=== PATIENT | male | born 1960 | race African-American/Black ===

== ENCOUNTER 2021-09-17 10:30 | Emergency (ER) | payer MEDICAID, OTHER ==
[~2021-09-17] VITALS: Ht 177.8 cm; Wt 81.6 kg
[2021-09-17] MEDS ORDERED: VANCOMYCIN INJECTION 1,750 MG in NS IV 500 ML 500 ML IV ONE (10:45)
[2021-09-17] MEDS ORDERED: CEFEPIME INJECTION 1,000 MG in NS (IVPB) 50 ML IV ONE (10:45)
[2021-09-17] MEDS ORDERED: NS IV 1000 ML 1,000 ML IV SCH ×3 (10:45→12:30)
[2021-09-17] MEDS ORDERED: NS IV 1000 ML 2,000 ML ONE (10:48)
--- NOTE | 2021-09-17 10:50 | ED General ---
General Chief Complaint: Fever-Adult/Adol Stated Complaint: FEVER Source of Information: Patient, EMS, Intermediate Records Exam Limitations: Other (Dementia) History of Present Illness Date Seen by Provider: Sep 17, 2021 Time Seen by Provider: 10:30 Initial Comments Patient to the ER by EMS from [facility] and rehab with chief complaint they discovered he had a fever today. He has some congestion and has refused his medications this morning. He has a history of dementia, had a negative Covid swab this morning at the snf and has multiple sick exposures for Covid and other infection in the snf. He is a full code. He does not rely on oxygen at baseline and had oxygen saturations 85% per staff. EMS states he had oxygen saturation of 94% on room air, mildly labored breathing. Patient does not contribute much to history. Patient does deny that he is in any pain. No mention antipyretics given. T-max 100.4. Allergies and Home Medications Allergies Coded Allergies: Quinolones (Verified Allergy, Unknown, 09/17/21) oxcarbazepine (Verified Allergy, Unknown, 09/17/21) Patient Home Medication List Home Medication List Reviewed: Yes Review of Systems Review of Systems Constitutional: No chills, No diaphoresis EENTM: No ear discharge, No ear pain Respiratory: No cough, No short of breath Cardiovascular: No chest pain, No edema Gastrointestinal: No abdominal pain, No nausea, No vomiting Genitourinary: No discharge, No dysuria Musculoskeletal: No back pain, No joint pain Skin: No pruritus, No rash Psychiatric/Neurological: Denies Headache, Denies Numbness All Other Systems Reviewed Negative Unless Noted: Yes Past Lvzauiy-Qfkkre-Pfedvx Hx Patient Social History Tobacco Use?: No Use of E-Cig and/or Vaping dev: No Physical Exam-Suspected Sepsis Physical Exam Vital Signs Vital Signs - First Documented 09/17/21 10:35 Temp 37.7 Pulse 94 Resp 16 B/P (MAP) 130/78 (95) Pulse Ox 91 O2 Delivery Room Air Capillary Refill : Height, Weight, BMI Height: '" Weight: lbs. oz. kg; BMI Method: General Appearance: Chronically ill, Moderate Distress Eyes: Bilateral Eye Normal Inspection, Bilateral Eye PERRL, Bilateral Eye EOMI HEENT: PERRL/EOMI, TMs Normal; No Pharynx Normal, No Moist Mucous Membranes Neck: Full Range of Motion, Normal Inspection, Non Tender Respiratory: Respiratory Distress (30 breaths/min, oxygen saturation 91% on room air), Rhonci (Bilateral upper respiratory sounds); No Wheezing Cardiovascular: Regular Rate, Rhythm, Normal Peripheral Pulses Gastrointestinal: Normal Bowel Sounds, Non Tender, Soft Extremity: Normal Capillary Refill, Normal Inspection, No Pedal Edema Neurologic/Psychiatric: Alert, Normal Mood/Affect, nutrition partner II-XII Norm as Tested, Other (Oriented to person, simple one-word answers) Skin: normal color, warm/dry Focused Exam Lactate Level 09/17/21 10:40: Lactic Acid Level 1.18 Lactic Acid Level Progress/Results/Core Measures Suspected Sepsis SIRS Temperature: Pulse: Respiratory Rate: Laboratory Tests 09/17/21 10:40: White Blood Count 6.9 Blood Pressure / Mean: 09/17/21 10:40: Lactic Acid Level 1.18 Laboratory Tests 09/17/21 10:40: Creatinine 0.90, INR Comment 1.2, Platelet Count 239, Total Bilirubin 0.3 Results/Orders Lab Results Laboratory Tests Test 09/17/21 10:40 09/17/21 13:35 Range/Units White Blood Count 6.9 4.3-11.0 10^3/uL Red Blood Count 3.83 L 4.30-5.52 10^6/uL Hemoglobin 11.8 L 13.3-17.7 g/dL Hematocrit 35 L 40-54 % Mean Corpuscular Volume 92 80-99 fL Mean Corpuscular Hemoglobin 31 25-34 pg Mean Corpuscular Hemoglobin Concent 34 32-36 g/dL Red Cell Distribution Width 14.6 H 10.0-14.5 % Platelet Count 239 130-400 10^3/uL Mean Platelet Volume 11.1 9.0-12.2 fL Immature Granulocyte % (Auto) 0 % Neutrophils (%) (Auto) 61 42-75 % Lymphocytes (%) (Auto) 28 12-44 % Monocytes (%) (Auto) 11 0-12 % Eosinophils (%) (Auto) 0 0-10 % Basophils (%) (Auto) 0 0-10 % Neutrophils # (Auto) 4.1 1.8-7.8 10^3/uL Lymphocytes # (Auto) 1.9 1.0-4.0 10^3/uL Monocytes # (Auto) 0.7 0.0-1.0 10^3/uL Eosinophils # (Auto) 0.0 0.0-0.3 10^3/uL Basophils # (Auto) 0.0 0.0-0.1 10^3/uL Immature Granulocyte # (Auto) 0.0 0.0-0.1 10^3/uL Prothrombin Time 15.1 H 12.2-14.7 SEC INR Comment 1.2 0.8-1.4 Activated Partial Thromboplast Time 27 24-35 SEC Blood Gas Puncture Site LT RAD Blood Gas Patient Temperature 37.1 Arterial Blood pH 7.41 7.37-7.43 Arterial Blood Partial Pressure CO2 40 35-45 MMHG Arterial Blood Partial Pressure O2 88 79-93 MMHG Arterial Blood HCO3 25 23-27 MMOL/L Arterial Blood Total CO2 26.1 21.0-31.0 MMOL/L Arterial Blood Oxygen Saturation 96 94-100 % Arterial Blood Base Excess 0.9 -2.5-2.5 MMOL/L Eugenio Test YES-POS Blood Gas Ventilator Setting NO Blood Gas Inspired Oxygen ROOM AIR Sodium Level 140 135-145 MMOL/L Potassium Level 4.3 3.6-5.0 MMOL/L Chloride Level 105 98-107 MMOL/L Carbon Dioxide Level 24 21-32 MMOL/L Anion Gap 11 5-14 MMOL/L Blood Urea Nitrogen 17 7-18 MG/DL Creatinine 0.90 0.60-1.30 MG/DL Estimat Glomerular Filtration Rate 104 BUN/Creatinine Ratio 19 Glucose Level 123 H 70-105 MG/DL Lactic Acid Level 1.18 0.50-2.00 MMOL/L Calcium Level 9.0 8.5-10.1 MG/DL Corrected Calcium 9.4 8.5-10.1 MG/DL Total Bilirubin 0.3 0.1-1.0 MG/DL Aspartate Amino Transf (AST/SGOT) 33 5-34 U/L Alanine Aminotransferase (ALT/SGPT) 24 0-55 U/L Alkaline Phosphatase 62 40-136 U/L C-Reactive Protein High Sensitivity 1.34 H 0.00-0.50 MG/DL Total Protein 8.1 6.4-8.2 GM/DL Albumin 3.5 3.2-4.5 GM/DL Influenza Type A (RT-PCR) Not Detected Not Detecte Influenza Type B (RT-PCR) Not Detected Not Detecte SARS-CoV-2 RNA (RT-PCR) Not Detected Not Detecte Urine Color YELLOW Urine Clarity CLEAR Urine pH 6.5 5-9 Urine Specific [place] <=1.005 1.016-1.022 Urine Protein NEGATIVE NEGATIVE Urine Glucose (UA) NEGATIVE NEGATIVE Urine Ketones NEGATIVE NEGATIVE Urine Nitrite NEGATIVE NEGATIVE Urine Bilirubin NEGATIVE NEGATIVE Urine Urobilinogen 0.2 < = 1.0 MG/DL Urine Leukocyte Esterase NEGATIVE NEGATIVE Urine RBC (Auto) NEGATIVE NEGATIVE Urine RBC NONE /HPF Urine WBC NONE /HPF Urine Crystals NONE /LPF Urine Bacteria NEGATIVE /HPF Urine Casts NONE /LPF Urine Mucus NEGATIVE /LPF Urine Culture Indicated NO My Orders Orders - LETTY VALDEZ Cbc With Automated Diff (09/17/21 10:43) Comprehensive Metabolic Panel (09/17/21 10:43) Blood Culture (09/17/21 10:43) Sputum Culture (09/17/21 10:43) Urinalysis (09/17/21 10:43) Urine Culture (09/17/21 10:43) Protime With Inr (09/17/21 10:43) Partial Thromboplastin Time (09/17/21 10:43) Chest 1 View, Ap/Pa Only (09/17/21 10:43) Ed Iv/Invasive Line Start (09/17/21 10:43) Ed Iv/Invasive Line Start (09/17/21 10:43) Vital Signs Adult Sepsis Patie Q15M (09/17/21 10:43) O2 (09/17/21 10:43) Remove Rings In Anticipation O (09/17/21 10:43) Lactic Acid Analyzer (09/17/21 10:43) Influenza A And B By Pcr (09/17/21 10:43) Ns Iv 1000 Ml (Sodium Chloride 0.9%) (09/17/21 10:45) Cefepime Injection (Maxipime Injection) (09/17/21 10:45) Vancomycin Injection (Vancomycin Injecti (09/17/21 10:45) Ed Iv/Invasive Line Start (09/17/21 10:43) Ns Iv 1000 Ml (Sodium Chloride 0.9%) (09/17/21 10:45) Covid 19 Inhouse Test (09/17/21 10:43) Arterial Blood Gas (09/17/21 10:50) Ns Iv 1000 Ml (Sodium Chloride 0.9%) (09/17/21 10:48) Hs C Reactive Protein (09/17/21 11:34) Ct Chest W (09/17/21 11:58) Iohexol Injection (Omnipaque 350 Mg/Ml 1 (09/17/21 12:15) Received Contrast (Hold Metformin- Contr (09/17/21 12:15) Ns (Ivpb) (Sodium Chloride 0.9% Ivpb Bag (09/17/21 12:15) Ed Iv/Invasive Line Start (09/17/21 12:18) Ns Iv 1000 Ml (Sodium Chloride 0.9%) (09/17/21 12:30) Medications Given in ED Current Medications Medications Dose Ordered Sig/Vivienne Route Start Time Stop Time Status Last Admin Dose Admin Iohexol 100 ml ONCE ONCE IV 09/17/21 12:15 09/17/21 12:16 DC 09/17/21 13:10 74 ML Sodium Chloride 100 ml ONCE ONCE IV 09/17/21 12:15 09/17/21 12:16 DC 09/17/21 13:10 80 ML Vital Signs/I&O 09/17/21 10:35 Temp 37.7 Pulse 94 Resp 16 B/P (MAP) 130/78 (95) Pulse Ox 91 O2 Delivery Room Air Capillary Refill : Progress Note #1: Time: 10:49 Progress Note Septic work-up, cefepime and vancomycin. Repeat Covid and influenza swab. 2 L would be greater than 20 mL/kg fluid bolus. Initial blood pressure is good. ABG obtained. Progress Note #2: Time: 11:59 Progress Note Chest x-ray related to a CT of the chest. Patient is resting comfortably without stated concern. ABG is normal, labs are unremarkable. Diagnostic Imaging Diagonstic Imaging: Xray Plain Films/CT/US/NM/MRI: chest Comments NAME: JOHN RAZO MED REC#: [id number] PT STATUS: REG ER : 1960 PHYSICIAN: LETTY VALDEZ MD ADMIT DATE: 09/17/21/ER Draft Date of Exam:09/17/21 CHEST 1 VIEW, AP/PA ONLY INDICATION: Febrile. Fall. FINDINGS: Portable chest. The lungs are well-aerated and clear. There is concern of fullness in the right hilum. The pulmonary vasculature is normal. No pneumothorax or pleural effusion. The heart is not enlarged. No acute bony changes are seen. IMPRESSION: 1. Concern of right hilar mass would consider CT scan of the chest. Dictated on workstation # [id number] Dict: 09/17/21 1153 Trans: 09/17/21 1155 [id number] Interpreted by: BASIL ANDERSON MD Electronically signed by: Reviewed: Reviewed by Nd Diagonstic Imaging: CT Plain Films/CT/US/NM/MRI: chest Comments [facility] [place], [place] NAME: JOHN RAZO [facility] REC#: [id number] PT STATUS: REG ER : 1960 PHYSICIAN: LETTY VALDEZ MD ADMIT DATE: 09/17/21/ER Draft Date of Exam:09/17/21 CT CHEST W PROCEDURE: CT chest with contrast only. TECHNIQUE: Multiple contiguous axial images were obtained through the chest after administration of intravenous contrast. Auto Exposure Controls were utilized during the CT exam to meet ALARA standards for radiation dose reduction. INDICATION: Fever, abnormal perihilar density. No prior CT. There is no hilar adenopathy or soft tissue mass. Some bibasilar zones of atelectasis and nonspecific infiltrate present. The heart is mildly enlarged and there is some mild prominence of the pulmonary venous structures. An element of interstitial edema owing to failure or hypervolemia suspected. There are some bilateral upper lobe predominately apical paraseptal cyst while chronic this patient has a small nonloculated subcentimeter pleural effusions. No pericardial collection. The aorta is nonaneurysmal. There is no pulmonary arterial embolus demonstrated. The visualized upper abdomen demonstrates an elevated fecal load with no free air or free fluid. IMPRESSION: No mass or adenopathy. Heart size and vascularity upper limits with small pleural effusions and suggestion of at least mild interstitial edema superimposed upon some basilar atelectasis. Partially visualized colonic constipation. Dictated on workstation # [id number] Dict: 09/17/21 1318 Trans: 09/17/21 1323 [facility] [id number] Interpreted by: JAY JAY DELANEY Electronically signed by: Reviewed: Reviewed by Me Departure Impression Primary Impression: Fever Qualified Codes: R50.9 - Fever, unspecified Additional Impressions: Viral syndrome Constipation Qualified Codes: K59.00 - Constipation, unspecified Dehydration Disposition: HOME, SELF-CARE Condition: Stable Departure-Patient Inst. Decision time for Depature: 15:22 Patient Instructions: Viral Syndrome (DC), Constipation, Adult ED, Dehydration, Adult ED Add. Discharge Instructions: Encourage lots of fluids over the next 2 weeks. MiraLAX once a day for the next 7 days. Return to the ER for worsening symptoms otherwise follow-up with PCP All discharge instructions reviewed with patient and/or family. Voiced understanding. Scripts Polyethylene Glycol 3350 (Miralax) 119 Gm Powder 17 GM PO DAILY for 7 Days, #1 EA 0 Refills Prov: LETTY VALDEZ 09/17/21 LETTY VALDEZ Sep 17, 2021 10:50
[2021-09-17 10:53] LABS: BASOPHILS % (AUTO) 0 % (0-10); EOSINOPHILS % (AUTO) 0 % (0-10); HEMATOCRIT 35 % (40-54); HEMOGLOBIN 11.8 g/dL (13.3-17.7); LYMPHOCYTES # (AUTO) 1.9 10^3/uL (1.0-4.0); LYMPHOCYTES % (AUTO) 28 % (12-44); MEAN CORPUSCULAR HEMOGLOBIN 31 pg (25-34); MEAN CORPUSCULAR HGB CONC 34 g/dL (32-36); MEAN CORPUSCULAR VOLUME 92 fL (80-99); MEAN PLATELET VOLUME 11.1 fL (9.0-12.2); MONOCYTES # (AUTO) 0.7 10^3/uL (0.0-1.0); MONOCYTES % (AUTO) 11 % (0-12); NEUTROPHILS # (AUTO) 4.1 10^3/uL (1.8-7.8); NEUTROPHILS % (AUTO) 61 % (42-75); PLATELET COUNT 239 10^3/uL (130-400); WHITE BLOOD COUNT 6.9 10^3/uL (4.3-11.0)
[2021-09-17 10:57] LABS: ABG BASE EXCESS 0.9 MMOL/L (-2.5-2.5); ABG OXYGEN SATURATION 96 % (94-100); ABG PCO2 40 MMHG (35-45); ABG PH 7.41 (7.37-7.43); ABG PO2 88 MMHG (79-93); ABG TCO2 26.1 MMOL/L (21.0-31.0); ALLENS TEST YES-POS; INSPIRED O2 ROOM AIR; PATIENT TEMP 37.1; VENTILATOR NO
[2021-09-17 11:01] LABS: ALBUMIN 3.5 GM/DL (3.2-4.5)
[2021-09-17 11:02] LABS: POTASSIUM 4.3 MMOL/L (3.6-5.0)
[2021-09-17 11:04] LABS: INR 1.2 (0.8-1.4); PROTHROMBIN TIME PATIENT 15.1 SEC (12.2-14.7); TOTAL PROTEIN 8.1 GM/DL (6.4-8.2)
[2021-09-17 11:06] LABS: BILIRUBIN,TOTAL 0.3 MG/DL (0.1-1.0)
[2021-09-17 11:08] LABS: CREATININE SERUM 0.9 MG/DL (0.60-1.30)
--- NOTE | 2021-09-17 11:55 | Diagnostic Imaging Report ---
INDICATION: Febrile. Fall. FINDINGS: Portable chest. The lungs are well-aerated and clear. There is concern of fullness in the right hilum. The pulmonary vasculature is normal. No pneumothorax or pleural effusion. The heart is not enlarged. No acute bony changes are seen. IMPRESSION: 1. Concern of right hilar mass would consider CT scan of the chest. Dictated by: Dictated on workstation # [id number]
[2021-09-17] MEDS ORDERED: NS 100 ML (IVPB) BAG IV ONE (12:15)
[2021-09-17] MEDS ORDERED: IOHEXOL 350 MG/ML 100 ML (OMNIPAQUE 350) VIAL IV ONE (12:15)
[2021-09-17] MEDS ORDERED: HOLD METFORMIN - RECEIVED CONTRAST 20 ML VIAL IV SCH (12:15)
--- NOTE | 2021-09-17 13:24 | Diagnostic Imaging Report ---
PROCEDURE: CT chest with contrast only. TECHNIQUE: Multiple contiguous axial images were obtained through the chest after administration of intravenous contrast. Auto Exposure Controls were utilized during the CT exam to meet ALARA standards for radiation dose reduction. INDICATION: Fever, abnormal perihilar density. No prior CT. There is no hilar adenopathy or soft tissue mass. Some bibasilar zones of atelectasis and nonspecific infiltrate present. The heart is mildly enlarged and there is some mild prominence of the pulmonary venous structures. An element of interstitial edema owing to failure or hypervolemia suspected. There are some bilateral upper lobe predominately apical paraseptal cyst while chronic this patient has a small nonloculated subcentimeter pleural effusions. No pericardial collection. The aorta is nonaneurysmal. There is no pulmonary arterial embolus demonstrated. The visualized upper abdomen demonstrates an elevated fecal load with no free air or free fluid. IMPRESSION: No mass or adenopathy. Heart size and vascularity upper limits with small pleural effusions and suggestion of at least mild interstitial edema superimposed upon some basilar atelectasis. Partially visualized colonic constipation. Dictated by: Dictated on workstation # [id number]
[2021-09-17 13:45] LABS: BILIRUBIN,URINE NEGATIVE (NEGATIVE); CLARITY,URINE CLEAR; COLOR,URINE YELLOW; GLUCOSE, URINE (UA) NEGATIVE (NEGATIVE); KETONES,URINE NEGATIVE (NEGATIVE); LEUKOCYTE ESTERASE ,URINE NEGATIVE (NEGATIVE); NITRITE,URINE NEGATIVE (NEGATIVE); PH,URINE 6.5 (5-9); PROTEIN,URINE NEGATIVE (NEGATIVE)
[2021-09-17 14:05] LABS: BACTERIA,URINE NEGATIVE /HPF
[2021-09-17] MEDS ORDERED: POLY119P5 PO (15:24)
[2021-09-17 16:07] VITALS: BP 101/58
== END 2021-09-17 16:07 | disposition home or self-care (01) ==
LOC: ER 10:30
DX: B34.9 Viral infection, unspecified (principal); K59.00 Constipation, unspecified; E86.0 Dehydration; Z20.822 Contact with and (suspected) exposure to COVID-19
CPT/HCPCS: 36415; 71045; 71260; 80053; 81000; 82805; 83605; 85025; 85610; 85730; 86141; 87040; 87088; 87636

== ENCOUNTER 2022-03-11 06:36 | Emergency (ER) | payer MEDICARE, MEDICAID ==
[~2022-03-11] VITALS: Ht 180 cm; Wt 81.6 kg
[~2022-03-11 06:36] MED LIST: POLY119P5 PO
--- NOTE | 2022-03-11 06:55 | ED Psychosocial ---
General Chief Complaint: Psych/Social Disorder Stated Complaint: PSYCH EVAL Source: patient Exam Limitations: no limitations History of Present Illness Date Seen by Provider: Mar 11, 2022 Time Seen by Provider: 06:35 Initial Comments Patient to the ER by EMS from [facility] and rehab with chief complaint of aggressive behaviors telling her body is going to kill them. He has a history of schizophrenia and is wheelchair-bound helps with transfers on baseline. He told EMS he wants to be left alone. Nursing staff said he needs come to the ER for a psych evaluation and so police helped him onto the cot. The only history the patient is given us is to tell us repeatedly, " fuck you bitch, shut up bitch, hell no, my left arm hurts, Get out of here" and "I am sick" He does not answer questions directly other than to hurl expletives and bite at the air. Staff report they changed his meds recently a week ago. He is from [facility] prior to [facility] Records indicate he is on olanzapine twice a day however it does not appear he received his morning meds today. Allergies and Home Medications Allergies Coded Allergies: Quinolones (Verified Allergy, Unknown, 09/17/21) oxcarbazepine (Verified Allergy, Unknown, 09/17/21) Patient Home Medication List Home Medication List Reviewed: Yes Polyethylene Glycol 3350 (Miralax) 119 Gm Powder, 17 GM PO DAILY Prescribed by: LETTY VALDEZ on 09/17/21 1524 Review of Systems Constitutional: No chills, No diaphoresis EENTM: No ear discharge, No ear pain Respiratory: No cough, No short of breath Cardiovascular: No chest pain, No palpitations Gastrointestinal: No abdominal pain, No nausea, No vomiting Genitourinary: No discharge, No dysuria Musculoskeletal: No back pain, No joint pain All Other Systems Reviewed Negative Unless Noted: Yes Past Rmgarik-Jrgbqv-Xmcpdt Hx Patient Social History Tobacco Use?: No Use of E-Cig and/or Vaping dev: No Substance use?: No Physical Exam Vital Signs - First Documented 03/11/22 06:38 Temp 36.9 Pulse 108 Resp 22 B/P (MAP) 135/92 (106) Pulse Ox 96 O2 Delivery Nasal Cannula Capillary Refill : Height, Weight, BMI Height: '" Weight: lbs. oz. kg; 25.00 BMI Method: General Appearance: mild distress, other (Chronically ill) HEENT: PERRL/EOMI, pharynx normal (Extensive dental caries but moist oral mucosa) Neck: full range of motion, normal inspection Respiratory: no respiratory distress, no accessory muscle use Cardiovascular: normal peripheral pulses, regular rate, rhythm Peripheral Pulses: 2+ Radial Pulses (R), 2+ Radial Pulses (L) Neurologic/Psychiatric: alert, other (Agitated) Skin: normal color, warm/dry Progress/Results/Core Measures Results/Orders Lab Results Laboratory Tests Test 03/11/22 07:39 Range/Units Glucometer 132 H 70-110 MG/DL My Orders Orders - LETTY VALDEZ Ziprasidone Injection (Geodon Injection) (03/11/22 07:00) Water (Sterile) For Injection (Sterile W (03/11/22 07:00) Olanzapine Orally Dissolve Tab (Zyprexa (03/11/22 07:15) Clonazepam Tablet (Klonopin Tablet) (03/11/22 07:15) Chlorpromazine Tablet (Thorazine Tablet) (03/11/22 07:15) Ziprasidone Capsule (Geodon Capsule) (03/11/22 07:15) General/Regular (03/11/22 Breakfast) Accucheck Stat ONCE (03/11/22 07:03) Insulin Determir (Per Unit) (Levemir (Pe (03/11/22 08:00) Medications Given in ED Current Medications Medications Dose Ordered Sig/Vivienne Route Start Time Stop Time Status Last Admin Dose Admin Chlorpromazine HCl 20 mg ONCE ONCE PO 03/11/22 07:15 03/11/22 07:16 DC 03/11/22 07:35 20 MG Clonazepam 1 mg ONCE ONCE PO 03/11/22 07:15 03/11/22 07:16 DC 03/11/22 07:35 1 MG Insulin Detemir 10 unit ONCE ONCE SQ 03/11/22 08:00 03/11/22 08:01 DC 03/11/22 08:12 10 UNIT Olanzapine 20 mg ONCE ONCE PO 03/11/22 07:15 03/11/22 07:16 DC 03/11/22 07:35 20 MG Ziprasidone 20 mg ONCE ONCE PO 03/11/22 07:15 03/11/22 07:16 DC 03/11/22 07:35 20 MG Vital Signs/I&O 03/11/22 06:38 Temp 36.9 Pulse 108 Resp 22 B/P (MAP) 135/92 (106) Pulse Ox 96 O2 Delivery Nasal Cannula Progress Progress Note #1: Time: 06:57 Progress Note Patient has not received his morning meds yet and appears quite agitated. He is declining any pills so we are going to give him an IM Geodon shot and put some breakfast in front of him and then reassess him. At this time he was very difficult to even clean his rear end up from all the stooling. He picked up and flung his brief full of stool across the room. With his attempts to bite people he is presenting some threat to staff safety so we will ensure he gets the Geodon which would be similar to what he has at baseline. When left alone he mumbles incoherently and sings, " [employer]". Progress Note #2: Time: 07:35 Progress Note Patient is much calmer now. He has agreed to take some pills breakfast. We ordered him something to eat and will attempt to get his blood sugar checked. We do not have 100 mg Thorazine tablets. Typically he takes 300 mg twice daily all we have is 10 mg of her name a couple Thorazine and some Geodon pills to offset the Thorazine. We have not given him the IM Geodon at this time since he is cooperative. Progress Note #3: Time: 08:00 Progress Note Spoke to Tyrese constantino at [facility] and she will pass information on to the s creener who will call us back. Patient might be appropriate for a short inpatient stay to get his medications lined out. We have made a third attempt to get him to take oral tablets and he took all the medications described above. We did not give him the IM Geodon at this time. He is still singing gayly to himself. He did take his insulin. Progress Note #4: Time: 08:25 Progress Note Vasiliy travis [facility]: Familiar with the patient and had made recommendations to [facility] and [facility] that they need to be screened by [facility] for readmission to [facility] and after that should not go back to a regular snf. Discussed the case with Hailey [facility] and she will be out in about 2 hours to screen him. Progress Note #5: Time: 11:07 Progress Note Hailey from [facility] came over around 10 this morning screen the patient and feels he would be appropriate for inpatient placement given his homicidal threats. She has been at work on either [facility] or [place]. She has returned to her office to work on this. She will call us back if she does not think it can be done today and we will send him back to the snf where they can continue to work on placement. Progress Note #6: Time: 12:31 Progress Note Patient has been calm, he calls out when he needs to use the restroom and transfers to the commode. He continually makes threatening gestures and language whenever he becomes agitated. He does not like being confined to bed but he is a fall risk and we do not have his wheelchair here. We will let him go back to his home environment where he will be more mobile and let the [facility][1] continue to work on getting him plugged in to an appropriate inpatient facility. Departure Impression Primary Impression: Homicidal ideation Additional Impressions: Agitation due to dementia Schizoaffective disorder, bipolar type Disposition: 01 HOME, SELF-CARE Condition: Stable Departure-Patient Inst. Decision time for Depature: 12:34 Referrals: PHU CAPONE DO (PCP/Family) Primary Care Physician Patient Instructions: Schizoaffective Disorder, Bipolar Disorder (DC) Add. Discharge Instructions: [facility] is working on placement inpatient for management of his psychiatric symptoms. Continue his home medications as prescribed. All discharge instructions reviewed with patient and/or family. Voiced understanding. LETTY VALDEZ Mar 11, 2022 06:55
[2022-03-11] MEDS ORDERED: ZIPRASIDONE 20 MG INJ (GEODON) VIAL IM ONE (07:00)
[2022-03-11] MEDS ORDERED: WATER (STERILE) FOR INJ 10 ML BTL INJ SCH (07:00)
[2022-03-11] MEDS ORDERED: OLANZapine 5 MG ODT (ZyPREXA ZYDIS) PO ONE (07:15)
[2022-03-11] MEDS ORDERED: chlorproMAZINE 10 MG (THORAZINE) TAB PO ONE (07:15)
[2022-03-11] MEDS ORDERED: clonazePAM 1 MG (KlonoPIN) TAB PO ONE (07:15)
[2022-03-11] MEDS ORDERED: ZIPRASIDONE 20 MG (GEODON) CAP PO ONE (07:15)
[2022-03-11 14:30] VITALS: BP 156/92
== END 2022-03-11 14:30 | disposition home or self-care (01) ==
LOC: EDUNIT# 06:36 → ER 06:37
DX: F25.0 Schizoaffective disorder, bipolar type (principal); F03.90 Unspecified dementia, unspecified severity, without behavioral disturbance, psychotic disturbance, mood disturbance, and anxiety; R45.850 Homicidal ideations
CPT/HCPCS: 82947

== ENCOUNTER 2022-07-24 10:11 | Emergency (ER) | payer MEDICARE, MEDICAID ==
[~2022-07-24] VITALS: Ht 187.9 cm; Wt 81.6 kg
[2022-07-24] MEDS ORDERED: LACTATED RINGERS 1,000 ML IV STA (10:34)
--- NOTE | 2022-07-24 10:40 | ED General ---
General Stated Complaint: DEHYDRATION Source of Information: Patient, EMS Exam Limitations: No Limitations History of Present Illness Date Seen by Provider: Jul 24, 2022 Time Seen by Provider: 10:15 Initial Comments 61-year-old male with past medical history of Parkinson's, schizoaffective disorder, diabetes, and hypothyroidism coming in via EMS from his senior living due to decreased p.o. intake and right-sided discomfort. Apparently he had a fall last week, had some right-sided pain, has not had any imaging. Currently he is denying any pain anywhere. He does not want to eat or drink as much. Reportedly he has had decreased urine output. He is denying any chest pain, shortness of breath, abdominal pain, nausea, vomiting, diarrhea, fever, chills, focal weakness or numbness, or any other concerns Allergies and Home Medications Allergies Coded Allergies: Quinolones (Verified Allergy, Unknown, 09/17/21) oxcarbazepine (Verified Allergy, Unknown, 09/17/21) Patient Home Medication List Home Medication List Reviewed: Yes Polyethylene Glycol 3350 (Miralax) 119 Gm Powder, 17 GM PO DAILY Prescribed by: LETTY VALDEZ on 09/17/21 1524 Review of Systems Review of Systems Constitutional: No fever EENTM: no symptoms reported Respiratory: no symptoms reported Cardiovascular: no symptoms reported Gastrointestinal: no symptoms reported Genitourinary: see HPI Musculoskeletal: see HPI Skin: no symptoms reported Psychiatric/Neurological: No Symptoms Reported Hematologic/Lymphatic: No Symptoms Reported Immunological/Allergic: no symptoms reported All Other Systems Reviewed Negative Unless Noted: Yes Past Yyatdul-Ribvwn-Rfstur Hx Patient Social History Tobacco Use?: No Past Medical History Surgeries: No Physical Exam Vital Signs Vital Signs - First Documented 07/24/22 10:15 Temp 37.0 Pulse 88 Resp 18 B/P (MAP) 128/83 (98) Pulse Ox 95 Capillary Refill : Height, Weight, BMI Height: '" Weight: lbs. oz. kg; 25.00 BMI Method: General Appearance: No Apparent Distress, Thin Eyes: Bilateral Eye Normal Inspection, Bilateral Eye PERRL HEENT: PERRL/EOMI, Normal ENT Inspection, Pharynx Normal Neck: Full Range of Motion, Normal Inspection, Non Tender, Supple Respiratory: Chest Non Tender, Lungs Clear, Normal Breath Sounds, No Accessory Muscle Use, No Respiratory Distress Cardiovascular: Regular Rate, Rhythm, No Edema, Normal Peripheral Pulses Gastrointestinal: Normal Bowel Sounds, Non Tender, Soft; No Distended, No Guarding Back: Normal Inspection, No CVA Tenderness, No Vertebral Tenderness Extremity: Normal Capillary Refill, Normal Inspection, Normal Range of Motion, Non Tender, No Calf Tenderness, No Pedal Edema Neurologic/Psychiatric: Alert, No Motor/Sensory Deficits, machine tech II-XII Norm as Tested, Disoriented, Other (Flat affect) Skin: Normal Color, Warm/Dry Lymphatic: No Adenopathy Progress/Results/Core Measures Suspected Sepsis SIRS Temperature: Pulse: Respiratory Rate: Laboratory Tests 07/24/22 10:40: White Blood Count 10.7 Blood Pressure / Mean: Laboratory Tests 07/24/22 10:40: Creatinine 0.77, Platelet Count 196, Total Bilirubin 0.5 Results/Orders Lab Results Laboratory Tests Test 07/24/22 10:40 Range/Units White Blood Count 10.7 4.3-11.0 10^3/uL Red Blood Count 4.11 L 4.30-5.52 10^6/uL Hemoglobin 12.9 L 13.3-17.7 g/dL Hematocrit 39 L 40-54 % Mean Corpuscular Volume 94 80-99 fL Mean Corpuscular Hemoglobin 31 25-34 pg Mean Corpuscular Hemoglobin Concent 33 32-36 g/dL Red Cell Distribution Width 13.8 10.0-14.5 % Platelet Count 196 130-400 10^3/uL Mean Platelet Volume 10.8 9.0-12.2 fL Immature Granulocyte % (Auto) 1 % Neutrophils (%) (Auto) 67 42-75 % Lymphocytes (%) (Auto) 26 12-44 % Monocytes (%) (Auto) 6 0-12 % Eosinophils (%) (Auto) 0 0-10 % Basophils (%) (Auto) 0 0-10 % Neutrophils # (Auto) 7.1 1.8-7.8 10^3/uL Lymphocytes # (Auto) 2.8 1.0-4.0 10^3/uL Monocytes # (Auto) 0.6 0.0-1.0 10^3/uL Eosinophils # (Auto) 0.0 0.0-0.3 10^3/uL Basophils # (Auto) 0.0 0.0-0.1 10^3/uL Immature Granulocyte # (Auto) 0.1 0.0-0.1 10^3/uL Sodium Level 140 135-145 MMOL/L Potassium Level 4.2 3.6-5.0 MMOL/L Chloride Level 104 98-107 MMOL/L Carbon Dioxide Level 25 21-32 MMOL/L Anion Gap 11 5-14 MMOL/L Blood Urea Nitrogen 19 H 7-18 MG/DL Creatinine 0.77 0.60-1.30 MG/DL Estimat Glomerular Filtration Rate 101 BUN/Creatinine Ratio 25 Glucose Level 227 H 70-105 MG/DL Calcium Level 9.1 8.5-10.1 MG/DL Corrected Calcium 9.9 8.5-10.1 MG/DL Magnesium Level 2.4 1.6-2.4 MG/DL Total Bilirubin 0.5 0.1-1.0 MG/DL Aspartate Amino Transf (AST/SGOT) 29 5-34 U/L Alanine Aminotransferase (ALT/SGPT) 24 0-55 U/L Alkaline Phosphatase 61 40-136 U/L Total Protein 8.2 6.4-8.2 GM/DL Albumin 3.0 L 3.2-4.5 GM/DL Lipase 44 8-78 U/L My Orders Orders - MARY KIDD MD Cbc With Automated Diff (07/24/22 10:31) Comprehensive Metabolic Panel (07/24/22 10:31) Magnesium (07/24/22 10:31) Ua Culture If Indicated (07/24/22 10:31) Chest 1 View, Ap/Pa Only (07/24/22 10:31) Pelvis 1 To 2 Views (07/24/22 10:31) Ct Head Wo (07/24/22 10:31) Lipase (07/24/22 10:34) Lactated Ringers (Lr 1000 Ml Iv Solution (07/24/22 10:34) Vital Signs/I&O 07/24/22 10:15 Temp 37.0 Pulse 88 Resp 18 B/P (MAP) 128/83 (98) Pulse Ox 95 Capillary Refill : Progress Note : Progress Note 61-year-old male with above history coming in due to confusion and right-sided pain. ABCs were intact and vitals were stable on presentation. Physical exam with no real tenderness. Chest x-ray with possible atypical infection. Pelvis x-ray with no fracture. CT head with no acute findings. Basic labs with no findings that would be consistent with his confusion. We will treat the patient with cefdinir for his atypical infection. I believe he stable for discharge with outpatient follow-up. He was sent home with strict return precautions Diagnostic Imaging Diagonstic Imaging: Xray (chest, pelvis), CT (head) Comments [facility] [place], [place] NAME: JOHN [facility]ZO [facility] REC#: [id number] PT STATUS: REG ER : 1960 PHYSICIAN: MARY KIDD MD ADMIT DATE: 07/24/22/ER Draft Date of Exam:07/24/22 CHEST 1 VIEW, AP/PA ONLY EXAMINATION: Chest 1 view HISTORY: Right-sided chest pain after a fall. COMPARISON: 09/17/2021 FINDINGS: Heart size and pulmonary vasculature are normal. There are mild interstitial opacities within the lung bases. No pleural effusion or pneumothorax. The osseous structures are intact. IMPRESSION: 1. Mild interstitial opacities in the lung bases which could represent atelectasis, edema, or atypical infection. Dictated on workstation # [id number] Dict: 07/24/22 1156 Trans: 07/24/[address] [facility] [id number] Interpreted by: PARRIS SAMANO DO Electronically signed by: [facility]. [place], [place] NAME: JOHN RAZO [facility] REC#: [id number] PT STATUS: REG ER : 1960 PHYSICIAN: MARY KIDD MD ADMIT DATE: 07/24/22/ER Signed Date of Exam:07/24/22 PELVIS 1 TO 2 VIEWS EXAMINATION: Pelvis radiograph EXAM DATE: 07/24/2022 11:54 AM COMPARISON: None available. HISTORY: pelvic pain TECHNIQUE: 1 views FINDINGS: There is no acute fracture, dislocation, or destructive osseous process. The joint spaces are normal. The soft tissues are normal. IMPRESSION: 1. No acute osseous abnormality. Dictated by: Dictated on workstation # [id number] Dict: 07/24/22 1158 Trans: 07/24/22 1203 [facility] [id number] Interpreted by: PARRIS SAMANO DO Electronically signed by: PARRIS SAMANO DO 07/24/22 1203 Departure Impression Primary Impression: Atypical pneumonia Disposition: HOME, SELF-CARE Condition: Stable Departure-Patient Inst. Decision time for Depature: 12:45 Referrals: PHU CAPONE DO (PCP/Family) Primary Care Physician Patient Instructions: Pneumonia, Adult ED Add. Discharge Instructions: He does appear to have an atypical mild lung infection which could have caused the confusion. Nothing seems to be broken on x-rays. The scan of his head also appears normal. Scripts Cefdinir (Cefdinir) 300 Mg Capsule 300 MG PO BID for 7 Days, #14 CAP 0 Refills Prov: MARY KIDD MD 07/24/22 MARY KIDD MD Jul 24, 2022 10:40
[2022-07-24 10:49] LABS: BASOPHILS % (AUTO) 0 % (0-10); EOSINOPHILS % (AUTO) 0 % (0-10); HEMATOCRIT 39 % (40-54); HEMOGLOBIN 12.9 g/dL (13.3-17.7); LYMPHOCYTES # (AUTO) 2.8 10^3/uL (1.0-4.0); LYMPHOCYTES % (AUTO) 26 % (12-44); MEAN CORPUSCULAR HEMOGLOBIN 31 pg (25-34); MEAN CORPUSCULAR HGB CONC 33 g/dL (32-36); MEAN CORPUSCULAR VOLUME 94 fL (80-99); MEAN PLATELET VOLUME 10.8 fL (9.0-12.2); MONOCYTES # (AUTO) 0.6 10^3/uL (0.0-1.0); MONOCYTES % (AUTO) 6 % (0-12); NEUTROPHILS # (AUTO) 7.1 10^3/uL (1.8-7.8); NEUTROPHILS % (AUTO) 67 % (42-75); PLATELET COUNT 196 10^3/uL (130-400); WHITE BLOOD COUNT 10.7 10^3/uL (4.3-11.0)
[2022-07-24 11:04] LABS: POTASSIUM 4.2 MMOL/L (3.6-5.0)
[2022-07-24 11:05] LABS: CALCIUM 9.1 MG/DL (8.5-10.1)
[2022-07-24 11:06] LABS: TOTAL PROTEIN 8.2 GM/DL (6.4-8.2)
[2022-07-24 11:08] LABS: BILIRUBIN,TOTAL 0.5 MG/DL (0.1-1.0)
[2022-07-24 11:09] LABS: CREATININE SERUM 0.77 MG/DL (0.60-1.30)
[2022-07-24 11:12] LABS: MAGNESIUM 2.4 MG/DL (1.6-2.4)
--- NOTE | 2022-07-24 12:00 | Diagnostic Imaging Report ---
EXAMINATION: Pelvis radiograph EXAM DATE: 07/24/2022 11:54 AM COMPARISON: None available. HISTORY: pelvic pain TECHNIQUE: 1 views FINDINGS: There is no acute fracture, dislocation, or destructive osseous process. The joint spaces are normal. The soft tissues are normal. IMPRESSION: 1. No acute osseous abnormality. Dictated by: Dictated on workstation # [id number]
--- NOTE | 2022-07-24 12:00 | Diagnostic Imaging Report ---
EXAMINATION: Chest 1 view HISTORY: Right-sided chest pain after a fall. COMPARISON: 09/17/2021 FINDINGS: Heart size and pulmonary vasculature are normal. There are mild interstitial opacities within the lung bases. No pleural effusion or pneumothorax. The osseous structures are intact. IMPRESSION: 1. Mild interstitial opacities in the lung bases which could represent atelectasis, edema, or atypical infection. Dictated by: Dictated on workstation # [id number]
--- NOTE | 2022-07-24 12:14 | Diagnostic Imaging Report ---
PROCEDURE: CT head without contrast. TECHNIQUE: Multiple contiguous axial images were obtained through the brain without the use of intravenous contrast. Auto Exposure Controls were utilized during the CT exam to meet ALARA standards for radiation dose reduction. INDICATION: 61-year-old male, poor intake, some aggressive behavior. CORRELATION STUDY: None FINDINGS: Generalized atrophic changes with prominence of the ventricles and sulci. Somewhat advanced for the patient's age. Scattered areas of decreased attenuation likely owing to chronic small vessel ischemic disease. No definitive regional area of edema. No appreciable midline shift or mass effect. No intracranial hemorrhage. No asymmetric hyperdense intracranial vascular sign. Basilar cisterns are maintained. 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 Bony calvarium otherwise unremarkable. Scattered areas of mucosal thickening through the ethmoid air cells and frontal sinuses. No air-fluid level. Deformity with flattened bilateral nasal bones likely owing to prior traumatic change. IMPRESSION: 1. Negative for acute intracranial abnormality. 2. Generalized atrophic changes and changes of small vessel ischemic disease. Does appear to be somewhat advanced for the patient's age. Dictated by: Dictated on workstation # [id number]
[2022-07-24] MEDS ORDERED: CEFDINIR 300 MG (OMNICEF) CAP PO ONE (12:45)
[2022-07-24] MEDS ORDERED: CEFD300C3 PO (12:47)
[2022-07-24 14:11] VITALS: BP 129/71
== END 2022-07-24 14:11 | disposition home or self-care (01) ==
LOC: EDUNIT# 10:11 → ER 10:12
DX: J18.9 Pneumonia, unspecified organism (principal)
CPT/HCPCS: 36415; 70450; 71045; 72170; 80053; 83690; 83735; 85025